=== PATIENT | male | born 1955 | race Hispanic/Latino ===

== ENCOUNTER 2023-10-18 05:15 | Observation (INO) | payer MEDICARE ==
[2023-10-13 13:46] VITALS: BP 114/61; PULSE 63; RESP 19
[~2023-10-18] VITALS: Ht 177.8 cm; Wt 99.9 kg
[2023-10-18] VITALS (35 sets, daily range): BP systolic 94–132; BP diastolic 48–73; PULSE 57–97; RESP 14–20; O2SAT 96
[~2023-10-18 05:15] MED LIST: AEC81 PO; ALBUTEROL IH; ATOR40TA71 PO; GLIP5TAB15 PO; LEVO112C4 PO; LISI5TAB21 PO; METO-408 PO; OMEP40CA21 PO; SPIR25TA6 PO; TAMS-1 PO; VITAMIN D3 PO
[2023-10-18] MEDS ORDERED: 0.9%NACL 1000ML 1,000 ML IV ONE (06:02)
[2023-10-18] MEDS: CEFAZOLIN SODIUM 2 GM VIAL ONE ×2 (06:53→10:04)
[2023-10-18] MEDS ORDERED: 0.9%NACL 100ML 48.45 ML, ROPIVACAINE 0.5% 5MG/ML 30ML 246.25 MG, KETOROLAC TROMETHAMINE... IV PRN ×5 (07:00)
[2023-10-18] MEDS ORDERED: ACETAMINOPHEN 1,000 MG/100 ML VIAL IV ONE (09:54)
[2023-10-18] MEDS ORDERED: LIDOCAINE PF 100MG/5ML (2%) SYRINGE 5ML ONE (09:56)
[2023-10-18] MEDS ORDERED: PROPOFOL 10 MG/ML 20ML VIAL IV ONE (09:57)
[2023-10-18] MEDS ORDERED: ROCURONIUM 10MG/1ML SYR 10 MG/ML ML ONE ×2 (09:57→10:56)
[2023-10-18] MEDS ORDERED: FENTANYL CITRATE PF 50 MCG/1 ML 2ML VIAL ONE (09:57)
[2023-10-18] MEDS ORDERED: EPHEDRINE SULFATE 50 MG/ML AMPULE ONE (10:12)
[2023-10-18] MEDS ORDERED: ONDANSETRON 4MG INJ ONE ×2 (10:23→12:16)
[2023-10-18] MEDS ORDERED: DEXAMETHASONE SOD PHOSPHATE 10MG/ML 1ML VIAL ONE (10:23)
[2023-10-18] MEDS ORDERED: TRANEXAMIC ACID 1000MG/10ML IV ONE (10:25)
[2023-10-18] MEDS ORDERED: CEFAZOLIN SODIUM 1 GM VIAL ONE (10:34)
[2023-10-18] MEDS ORDERED: GENTAMICIN SULFATE 80 MG/2 ML VIAL ONE (10:34)
[2023-10-18] MEDS ORDERED: TRANEXAMIC ACID 1000MG/10ML ONE (10:34)
[2023-10-18] MEDS ORDERED: NEOSTIGMINE METHYLSULFATE 1MG/ML IV ONE (11:21)
[2023-10-18] MEDS ORDERED: GLYCOPYRROLATE 1 MG/5 ML SYRINGE ONE (11:21)
[2023-10-18] MEDS ORDERED: MEPERIDINE-PF 25 MG/ML SYG ONE (12:16)
[2023-10-18] MEDS ORDERED: HYDROMORPHONE PCA 10 MG/50 ML 50 ML IV PRN (15:00)
[2023-10-18] MEDS ORDERED: DIPHENHYDRAMINE HCL 25 MG CAPSULE PO PRN (20:30)
[2023-10-18] MEDS ORDERED: CEFAZOLIN SODIUM 3 GM in DEXTROSE 5%-WATER 100 ML IVPB SCH (20:30)
[2023-10-18] MEDS ORDERED: ACETAMINOPHEN 325 MG TAB PO PRN ×2 (20:30)
[2023-10-18] MEDS ORDERED: ONDANSETRON 4MG INJ IVP PRN (20:30)
[2023-10-18] MEDS ORDERED: MAG/ALUM/SIMETH 30 ML UDCUP PO PRN (20:30)
[2023-10-18] MEDS ORDERED: LACTULOSE 20 GM/30 ML UDCUP PO PRN (20:30)
[2023-10-18] MEDS ORDERED: DiphenhydrAMINE HCL 50 MG/ML VIAL IM PRN (20:30)
[2023-10-18] MEDS ORDERED: BENZOCAINE/MENTH/CETYLPYRD CL 1 EACH LOZENGE MM PRN (20:30)
[2023-10-18] MEDS ORDERED: DIPHENOXYLATE HCL/ATROPINE 2.5/0.025 MG TAB PO PRN (20:30)
[2023-10-18] MEDS ORDERED: CEFAZOLIN SODIUM 1 GM VIAL IVPB SCH (20:30)
[2023-10-18] MEDS ORDERED: TRAMADOL HCL 50 MG TABLET PO PRN (20:30)
[2023-10-18] MEDS: 0.9%NACL 1000ML 1,000 ML IV SCH (23:31)
[2023-10-19 03:53] LABS: HEMOGLOBIN A1C 5.6 % (4.0-6.0)
[2023-10-19 03:58] LABS: HEMATOCRIT 30.6 % (42-54); MEAN CORPUSCULAR HEMOGLOBIN 31.4 pg (27.0-33.0); MEAN CORPUSCULAR HGB CONC 34.3 g/dL (32.0-36.0); MEAN CORPUSCULAR VOLUME 91.6 fL (79-99); RED BLOOD CELL COUNT(AUTO) 3.34 MIL/uL (4.50-6.20); RED CELL DISTRIBUTION WIDTH 13.9 % (11.0-15.5); WHITE BLOOD COUNT (AUTO) 11.1 K/uL (4.8-10.8)
[2023-10-19 04:02] LABS: THYROID STIMULATING HORMONE 0.63 uIU/mL (0.36-3.74)
[2023-10-19 04:11] VITALS: BP 119/63; PULSE 59; RESP 18
[2023-10-19] MEDS ORDERED: ALBUTEROL IH PRN (05:00)
[2023-10-19] MEDS ORDERED: CEFAZOLIN SODIUM 2 GM VIAL IVPB ONE (06:00)
[2023-10-19] MEDS ORDERED: LEVOTHYROXINE 112 MCG TABLET PO SCH (06:30)
[2023-10-19] MEDS ORDERED: ALBUTEROL 0.083% 2.5 MG/3 ML INH IH PRN (06:30)
[2023-10-19 08:00] VITALS: BP 117/63; PULSE 65; RESP 18
[2023-10-19 08:10] VITALS: O2SAT 97
[2023-10-19] MEDS ORDERED: SPIRONOLACTONE 25 MG TAB PO SCH (09:00)
[2023-10-19] MEDS ORDERED: RIVAROXABAN 10 MG TABLET PO SCH (09:00)
[2023-10-19] MEDS ORDERED: ASPIRIN 81 MG EC TAB PO SCH (09:00)
[2023-10-19] MEDS ORDERED: FAMOTIDINE 20MG TAB PO ONE (09:00)
[2023-10-19] MEDS ORDERED: LISINOPRIL 5 MG TABLET PO SCH (09:00)
[2023-10-19] MEDS ORDERED: GLIPIZIDE 5 MG TABLET PO SCH (09:00)
[2023-10-19] MEDS: 0.9%NACL 1000ML 1,000 ML IV SCH (09:25)
[2023-10-19 12:00] VITALS: BP 112/63; PULSE 71; RESP 20
[2023-10-19] MEDS ORDERED: METOPROLOL SUCCINATE 25 MG TAB.SR.24H PO SCH (21:00)
[2023-10-19] MEDS ORDERED: TAMSULOSIN HCL 0.4 MG CAP.ER.24H PO SCH (21:00)
[2023-10-19] MEDS ORDERED: ATORVASTATIN 40 MG TABLET PO SCH (21:00)
== END 2023-10-19 18:11 | disposition home or self-care (01) ==
LOC: DAH 05:15 → DAHIP 05:16 → 4AH 18:00
PROVIDERS: ADMIT Orthopaedic Surgery; ATTEND Orthopaedic Surgery
DX: M17.12 Unilateral primary osteoarthritis, left knee (principal); E11.9 Type 2 diabetes mellitus without complications; E03.9 Hypothyroidism, unspecified; I10 Essential (primary) hypertension; E78.5 Hyperlipidemia, unspecified; G47.33 Obstructive sleep apnea (adult) (pediatric); J44.9 Chronic obstructive pulmonary disease, unspecified; G89.29 Other chronic pain; E66.01 Morbid (severe) obesity due to excess calories; K21.9 Gastro-esophageal reflux disease without esophagitis; F17.210 Nicotine dependence, cigarettes, uncomplicated; Z79.01 Long term (current) use of anticoagulants; Z91.041 Radiographic dye allergy status; Z79.82 Long term (current) use of aspirin; Z79.899 Other long term (current) drug therapy; Z68.31 Body mass index [BMI] 31.0-31.9, adult; Z86.711 Personal history of pulmonary embolism
CPT/HCPCS: 87641; 27447; 96365; 96366 ×2; 96368; 82948 ×5; 97161; 97012; 97116 ×2; 97530 ×8; 96376; 83036; 84443; 80048; 85027; 36415; A6260; G0378 ×19; A4510; A4663; J7030 ×3; A4215 ×2; A4649 ×4; J3010; J0690 ×3; J3490 ×4; J1170; J1100; J0171; J2001; J1580; J7060; J2704; J2405 ×2; J1885; J2710; J2175; J2795; J0735; A6223; C1763 ×2; C1776; A5120; A4223; A4222; A4221; A6450